=== PATIENT | male | born 1955 | race Caucasian/White ===

== ENCOUNTER 2023-02-19 17:19 | Emergency (ER) | payer OTHER, SELFPAY ==
[2023-02-19 17:23] VITALS: BP 119/66
--- NOTE | 2023-02-19 19:35 | ED.GENMED ---
History of Present Illness
General
Chief Complaint: Post Operative Problem(s)
Source: patient
Exam Limitations: none
Time Seen by Provider: 02/19/23 18:55
Nursing documentation reviewed up to this point in time: agreed with
Travel History
Have you had any contact with someone who has COVID-19?: No
Do you have any symptoms of coronavirus? Fever > 100 degrees, chills, cough, shortness of breath, sore throat, loss of taste or smell, muscle aches, or headache?: No
History of Present Illness
History of Present Illness:
Patient status post elective outpatient right inguinal hernia repair this morning, presents to ED secondary to sudden onset of swelling noted over the incision site next to his umbilicus. Procedure was performed 3 incision sites. Denies fever or
chills. Denies pain.
Past History
Past History
ED Past Medical History: None
ED Past Surgical History: Other (Hemorrhoidectomy)
Social History
Tobacco: Smoker
Personal:
Living: with family
Review of Systems
Review of Systems
Allergies reviewed?: Yes
All Other Systems: ROS reviewed and negative except as documented in HPI and ROS
Constitutional: Reports no symptoms
Musculoskeletal: Reports no symptoms
Skin: Reports other (swelling over incision site)
Neurological: Reports no symptoms
Phy Exam
Physical Exam
Physical Exam:
Physical Exam
General: no apparent distress, not acutely ill. afebrile
Head: nc/at. eomi
Neck: supple. no meningeal signs.
Abdomen: normal bowel sounds. not tender.
Neuro: alert and oriented. no focal neurological deficits
Skin: multiple incisional wound noted over umbilicus and suprapubic region with minimal surrounding ecchymosis and swelling.
Psychiatric: well kept. interactive and cooperative
Extremities: no edema. no calf tenderness.
Course
Vital Signs
Initial and Last Documented VS:
Initial Vital Signs
Temp Pulse Resp BP Pulse Ox
98.1 F 82 16 119/66 98
02/19/23 17:23 02/19/23 17:23 02/19/23 17:23 02/19/23 17:23 02/19/23 17:23
Last Documented Vital Signs
Temp Pulse Resp BP Pulse Ox
98.1 F 82 16 119/66 98
02/19/23 17:23 02/19/23 17:23 02/19/23 17:23 02/19/23 17:23 02/19/23 17:23
MDM/Problems Addressed
MDM/Problems Addressed:
Incision site picture viewed by oncall surgery, , who feels that presentation is likely small hematoma from incision. Advises gauze application with pressure dressing along with outpatient f/u. Pt and spouse agree with treatment plan.
*Critical Care Note
Total Time (30-74mins, 75-104mins- exclusive of procedures): Not Applicable
ED Attending Note
-
Portions of this chart may have been created with voice recognition software.� Occasional wrong word or��sound alike� substitutions may have occurred due to the inherent limitations of voice recognition software.
Discharge Plan
Departure
Patient Disposition: Home (Routine Discharge)
Date of Disposition: 02/19/23
Time of Disposition: 19:36
Patient with high blood pressure during this ER visit?: Yes
Condition: Good
Discharge Problem:
post op hematoma
Instructions: Hematoma
Prescriptions:
No Action
atorvastatin 40 mg Tablet
40 mg PO QPM
tamsulosin 0.4 mg Capsule
0.4 mg PO QPM
budesonide-formoterol [Symbicort] 80-4.5 mcg/actuation Hfa Aerosol Inhaler
1 inh INHALATION PRN PRN (Reason: SOB)
cholecalciferol (vitamin D3) [Vitamin D3] 50 mcg (2,000 unit) Capsule
50 mcg PO QPM
aspirin 81 mg Capsule
81 mg PO QPM
sertraline 150 mg Capsule
150 mg PO QPM
tramadol 50 mg tablet
50 mg PO Q6HPRN PRN (Reason: severe pain/breakthrough pain) Qty: 10 0RF
acetaminophen [Tylenol Extra Strength] 500 mg tablet
1,000 mg PO Q6HPRN PRN (Reason: mild pain) Qty: 1 0RF
ibuprofen 200 mg tablet
400 mg PO Q6HPRN PRN (Reason: moderate pain) Qty: 1 0RF
polyethylene glycol 3350 [Miralax] 17 gram/dose powder
4 g PO DAILY PRN (Reason: Constipation) Qty: 119 0RF
Rx Instructions:
start a laxative such as MIRALAX on day 2 after surgery if no bowel movement yet as long as no nausea/vomiting and passing gas
Referrals:
Juana Duncan MD [Family Provider] -
Nito Zaidi MD [Active] -
Activity Restrictions/Additional Instructions:
As discussed, please follow up with your surgeon with any further concerns.
Interventions
Interventions:
*Risk Screen - Suicide Last Done: 02/19/23 17:35
*General Assessment Last Done: 02/19/23 17:35
*Neglect/Abuse Screening Last Done: 02/19/23 17:35
ED- Fall Risk Assessment Last Done: 02/19/23 17:37
*ED COVID-19 Vaccine History Last Done: 02/19/23 17:23
*Nursing Disposition Last Done: 02/19/23 19:54
ED-Skin Assessment Last Done: 02/19/23 17:36
Discharge Date and Time
Discharge Date/Time: 02/19/23 19:55
== END 2023-02-19 19:55 | disposition home or self-care (01) ==
LOC: EMR 17:19
PROVIDERS: EMERGENCY PHYSICIAN Emergency Medicine; FAMILY PHYSICIAN Internal Medicine
DX: L76.32 Postprocedural hematoma of skin and subcutaneous tissue following other procedure (principal); Y83.8 Other surgical procedures as the cause of abnormal reaction of the patient, or of later complication, without mention of misadventure at the time of the procedure; R03.0 Elevated blood-pressure reading, without diagnosis of hypertension; F17.200 Nicotine dependence, unspecified, uncomplicated; Z79.82 Long term (current) use of aspirin
CPT/HCPCS: 99281

== ENCOUNTER → 2023-07-25 09:42 | Outpatient (REF) | payer OTHER, SELFPAY | LOC: HWRAD 09:42 | PROVIDERS: ATTENDING PHYSICIAN Internal Medicine | DX: F17.200 Nicotine dependence, unspecified, uncomplicated (principal); R63.4 Abnormal weight loss | CPT/HCPCS: 71046 ==

== ENCOUNTER → 2023-08-17 10:05 | Outpatient (REF) | payer OTHER, SELFPAY | LOC: HWRAD 10:05 | PROVIDERS: ATTENDING PHYSICIAN Internal Medicine | DX: F17.200 Nicotine dependence, unspecified, uncomplicated (principal); R63.4 Abnormal weight loss; R97.20 Elevated prostate specific antigen [PSA]; R10.9 Unspecified abdominal pain | CPT/HCPCS: 74177; Q9967 ==

== ENCOUNTER → 2024-02-27 07:47 | Outpatient (REF) | payer OTHER, SELFPAY | LOC: DHCBC/DCA 07:47 | PROVIDERS: ATTENDING PHYSICIAN Internal Medicine | DX: R06.02 Shortness of breath (principal); Z01.818 Encounter for other preprocedural examination | CPT/HCPCS: 78452; 93017; A9500; J2785 ==

== ENCOUNTER → 2024-03-10 15:57 | Outpatient (REF) | payer OTHER, SELFPAY | LOC: HWRAD 15:57 | PROVIDERS: ATTENDING PHYSICIAN Urology; FAMILY PHYSICIAN Internal Medicine | DX: Z01.811 Encounter for preprocedural respiratory examination (principal) | CPT/HCPCS: 71046 ==

== ENCOUNTER 2024-05-16 17:02 | Inpatient (IN) | payer OTHER, SELFPAY ==
[2024-05-16 09:51] VITALS: BP 152/73
[2024-05-16] MEDS: DUONEB 3 ML INH (10:02)
--- NOTE | 2024-05-16 10:24 | ED.GENMED ---
History of Present Illness
General
Chief Complaint: Breathing Problem
Source: patient and spouse
Exam Limitations: none
Time Seen by Provider: 05/16/24 10:17
Nursing documentation reviewed up to this point in time: agreed with
History of Present Illness
History of Present Illness:
69-year-old male past medical history of previous stroke COPD presenting to the emergency department today with concerns of worsening shortness of breath and wheezing over the past week. Has been using his home inhalers without movement. Denies
any chest pain does feel very short of breath does feel some lightheadedness. No fevers no recent illnesses.
Past History
Past History
ED Past Medical History: None
ED Past Surgical History: Other (Hemorrhoidectomy)
Social History
Tobacco: Smoker
Personal:
Living: with family
Review of Systems
Review of Systems
Allergies reviewed?: Yes
All Other Systems: ROS reviewed and negative except as documented in HPI and ROS
Phy Exam
Physical Exam
Physical Exam:
GENERAL: Alert , in no apparent distress
EYE: pupils equal and reactive
NECK: Supple, no significant adenopathy.
ENT: o/p clr, mmm.
CARDIAC: Regular rate and rhythm .
LUNGS: Diminished breath sounds diffuse inspiratory and expiratory wheezing
ABDOMEN: Soft, without focal tenderness, no r/g, no cvat
NEUROLOGICAL: Alert and oriented, no focal neuro deficits
SKIN: Warm and dry, skin intact.
MUSCULOSKELETAL: No edema, well perfused.
PSYCH: Normal and appropriate interaction.
Scores
Heart Failure Risk
Heart Failure Risk Score: Not Applicable
Sepsis
Sepsis Screening
Sepsis Assessment: Sepsis Ruled Out
Sepsis Screen
Sepsis Screen: Sepsis Ruled Out
Date: 05/16/24
Time: 16:37
Course
Orders/Labs/Results
Orders:
Orders
05/16/24 09:57
Ipratropium/Albuterol Sulfate [Duoneb] 3 ml INH R NOW ONE
05/16/24 10:23
Dexamethasone Sod Phosphate [Decadron] 10 mg IV NOW STA
Ipratropium/Albuterol Sulfate [Duoneb] 9 ml INH R NOW STA
CR Chest Portable - 1 View Urgent
Comment:
Reason For Exam: sob
Reason Study Needs to be Portable: Patient Unstable
05/16/24 10:24
Azithromycin [Zithromax] 500 mg PO NOW STA
05/16/24 10:40
Complete Blood Count/With Diff Urgent
Comprehensive Metabolic Panel Urgent
05/16/24 13:10
Albuterol Nebs [Ventolin Nebules] 2.5 mg INH R NOW STA
05/16/24 15:34
Albuterol Nebs [Ventolin Nebules] 2.5 mg INH R NOW STA
05/16/24 16:34
COVID-19 Antigen Routine
Source: Nasal Swab
Abnormal Lab Results
05/16/24
10:40
RBC 4.48 L 10^6/uL
(4.70-6.10)
RDW 15.3 H %
(11.5-14.5)
Absolute Lymphs (auto) 1.1 L 10^3/uL
(1.2-3.4)
Lymphocytes % 18.4 L %
(20.5-51.1)
Eosinophils % 12.2 H %
(0-6)
Carbon Dioxide 31 H mmol/L
(22-30)
Glucose 116 H mg/dl
(70-99)
Total Protein 6.1 L g/dl
(6.3-8.2)
05/16/24 10:40
05/16/24 10:40
Vital Signs
Initial and Last Documented VS:
Initial Vital Signs
Pulse Resp BP Pulse Ox
96 24 152/73 94
05/16/24 09:51 05/16/24 09:51 05/16/24 09:51 05/16/24 09:51
Last Documented Vital Signs
Pulse Resp BP Pulse Ox
97 22 152/73 96
05/16/24 16:15 05/16/24 16:15 05/16/24 09:51 05/16/24 16:15
MDM/Problems Addressed
MDM/Problems Addressed:
69-year-old male presenting to the emergency department today with concerns of diffuse inspiratory expiratory wheezing worsening through the week. Does have a history of COPD. Started on steroids and DuoNebs here. Patient reassessed still with
very significant wheezing appears very short of breath with even the slightest movement and any ambulation. Concerning his plan to admit for further treatment and monitoring.
*Critical Care Note
Total Time (30-74mins, 75-104mins- exclusive of procedures): Not Applicable
ED Attending Note
-
Portions of this chart may have been created with voice recognition software.� Occasional wrong word or��sound alike� substitutions may have occurred due to the inherent limitations of voice recognition software.
Discharge Plan
Departure
Patient Disposition: Admit
Date of Disposition: 05/16/24
Time of Disposition: 15:37
Admit to: Med/Surg
Admit to doctor: Izabella
Presentation/result/management discussed w/ accepting MD/DO: Hospitalist
Patient with high blood pressure during this ER visit?: No
Condition: Good
Covid-19: Not Applicable
Discharge Problem:
COPD exacerbation
Prescriptions:
No Action
atorvastatin 40 mg Tablet
40 mg PO QPM
tamsulosin 0.4 mg Capsule
0.4 mg PO QPM
cholecalciferol (vitamin D3) [Vitamin D3] 50 mcg (2,000 unit) Capsule
50 mcg PO QPM
aspirin 81 mg Capsule
81 mg PO QPM
acetaminophen [Tylenol Extra Strength] 500 mg tablet
1,000 mg PO Q6HPRN PRN (Reason: mild pain) Qty: 1 0RF
ibuprofen 200 mg tablet
400 mg PO Q6HPRN PRN (Reason: moderate pain) Qty: 1 0RF
sertraline 100 mg tablet
200 mg PO QPM
albuterol sulfate 90 mcg/actuation HFA aerosol inhaler
2 puff INHALATION Q6HPRN PRN (Reason: sob)
Trelegy Ellipta 100-62.5-25 mcg blister with device
1 inh INHALATION R DAILY
cetirizine 5 mg Tablet
5 mg PO DAILY
Referrals:
Juana Duncan MD [Family Provider] -
Interventions
Interventions:
*Risk Screen - Suicide Last Done: 05/16/24 10:43
*General Assessment Last Done: 05/16/24 10:43
*Neglect/Abuse Screening Last Done: 05/16/24 10:43
*ED- Fall Risk Assessment Last Done: 05/16/24 10:43
*ED COVID-19 Vaccine History Last Done: 05/16/24 10:43
ED- Cardiac Assessment Last Done: 05/16/24 10:43
ED- Pulmonary Assessment Last Done: 05/16/24 10:43
Discharge Date and Time
Print Language: OCCITAN
[2024-05-16] MEDS: DECADRON 10 MG IV (10:32)
[2024-05-16] MEDS: ZITHROMAX 500 MG PO (10:32)
[2024-05-16] MEDS: DUONEB 9 ML INH (10:32)
[2024-05-16 10:56] LABS: % Basophils 1.2 % (0-2); % Eosinophils 12.2 % (0-6); % Immature Granulocytes 0.3 % (0-0.5); % Lymphocytes 18.4 % (20.5-51.1); % Monocytes 5.9 % (1.7-9.3); Absolute Basophils 0.1 10^3/uL (0-0.2); Absolute Eosinophils 0.7 10^3/uL (0-0.7); Absolute Lymphocytes 1.1 10^3/uL (1.2-3.4); Absolute Monocytes 0.3 10^3/uL (0.1-0.6); Absolute Neutrophils 3.6 10^3/uL (1.4-6.5); Hematocrit 41.2 % (39.0-52.0); Hemoglobin 13.9 g/dL (13.0-18.0); Mean Corp Hgb Conc. 33.7 g/dL (33.0-37.0); Mean Platelet Volume 9.4 fL (7.4-10.4); Nucleated Red Blood Cells % 0 % (-); Platelet Count 156 10^3/uL (130-400); Red Blood Cell Count 4.48 10^6/uL (4.70-6.10); Red Cell Dist. Width 15.3 % (11.5-14.5); White Blood Cell Count 5.8 10^3/uL (4.8-10.8)
[2024-05-16 11:08] LABS: ALT (SGPT) 29 U/L (0-50); AST (SGOT) 23 U/L (17-59); Albumin 3.8 g/dl (3.5-5.0); Alkaline Phosphatase 101 U/L (38-126); Blood Urea Nitrogen 11 mg/dl (9-20); Calcium 9.2 mg/dl (8.4-10.2); Carbon Dioxide 31 mmol/L (22-30); Chloride 99 mmol/L (98-107); Glucose 116 mg/dl (70-99); Potassium 4.1 mmol/L (3.5-5.1); Sodium 135 mmol/L (135-145); Total Bilirubin 0.7 mg/dl (0.2-1.3); Total Protein 6.1 g/dl (6.3-8.2); eGFR > 60.00
--- NOTE | 2024-05-16 13:04 | EDRN ---
Pts ambulatory pulse ox 92% on room air after neb. Pt asking to be discharged. Provider at bedside to re-evaluate.
[2024-05-16] MEDS: VENTOLIN NEBULES 2.5 MG INH ×3 (13:13→21:33)
--- NOTE | 2024-05-16 16:45 | HPS.HSE ---
Family Physician
-
Family Physician: Juana Duncan
Chief Complaint
-
Shortness of breath
History of Present Illness
69-year-old male here complaining of progressive shortness of breath, dyspnea on exertion over the past week. Productive cough. Denies sick contacts.
Actively smokes. Not on home oxygen.
Denies fevers, chills, chest pain.
Medical History
Past Medical History
Past Medical History: Reports Other
Additional Past Medical History:
COPD
Prostate cancer
Stroke -embolectomy
Hyperlipidemia
BPH
Depression
Past Surgical History: Reports Other
Additional Past Surgical History:
Hemorrhoidectomy
Inguinal hernia repair
Prostatectomy
Cerebral embolectomy
Social History
Tobacco: Smoker
Alcohol: Occasional
Drug: None
Personal:
Living: With Family
Employment: Not Employed
Family History
Family History: Not pertinent
Allergies / Home Medications
Allergies reflects when Allergies were last updated in [employer].
Home Medications with original date entered in [employer]
Allergy/Medication List:
Allergies
Allergy/AdvReac Type Severity Reaction Status Date / Time
No Known Allergies Allergy Verified 05/16/24 09:54
Home Medications
aspirin 81 mg capsule 81 mg PO QPM 02/15/23
atorvastatin 40 mg tablet 40 mg PO QPM 02/15/23
cholecalciferol (vitamin D3) 50 mcg (2,000 unit) capsule (Vitamin D3) 50 mcg PO QPM 02/15/23
tamsulosin 0.4 mg capsule 0.4 mg PO QPM 02/15/23
acetaminophen 500 mg tablet (Tylenol Extra Strength) 1,000 mg (2 x 500 mg) PO Q6HPRN PRN mild pain #1 tab 02/19/23
ibuprofen 200 mg tablet 400 mg (2 x 200 mg) PO Q6HPRN PRN moderate pain #1 tab 02/19/23
albuterol sulfate 90 mcg/actuation aerosol inhaler 2 puff inhalation Q6HPRN PRN sob 05/16/24
cetirizine 5 mg tablet 5 mg PO DAILY Allergies 05/16/24
fluticasone fur. 100 mcg-umeclid 62.5 mcg-vilant 25 mcg inhalat.powder (Trelegy Ellipta) 1 inh inhalation R DAILY 05/16/24
sertraline 100 mg tablet 200 mg PO QPM 05/16/24
Review of Systems
-
History Source: Patient and Family
A 12 point ROS was completed and negative except as noted: Yes
Physical Exam
Vital Signs
Vital Signs
Pulse Resp BP Pulse Ox
97 22 152/73 96
05/16/24 16:15 05/16/24 16:15 05/16/24 09:51 05/16/24 16:15
Physical Exam
General: No Apparent Distress, Comfortable and Cachectic
HEENT: NormoCephalic, Anicteric and Moist mucous membranes
Respiratory: Wheezes
Cardiac: S1/S2 and Regular Rhythm
GI: Soft, Non Tender and Non Distended
Genito-urinary: Deferred by me
Musculoskeletal: No Clubbing, No Cyanosis and No Edema
Skin: Warm and Dry
Neuro: AO x 3
Hematologic/Lymphatic: No Lymphadenopathy
Psych: Calm
Laboratory Results
-
05/16/24 10:40
05/16/24 10:40
Laboratory Results
Total Bilirubin 0.7 mg/dl (0.2-1.3) 05/16/24 10:40
AST 23 U/L (17-59) 05/16/24 10:40
ALT 29 U/L (0-50) 05/16/24 10:40
Alkaline Phosphatase 101 U/L (38-126) 05/16/24 10:40
Impression/Plan
-
Acute hypoxic respiratory insufficiency - due to acute COPD exacerbation. Oxygenation improved on 2 L nasal cannula. Chest x-ray shows hyperinflation without infiltrates. Check COVID antigen.
Admit to MedSurg.
Acute COPD exacerbation -steroids, nebs, oxygen. Azithromycin, Acapella, incentive spirometer, Mucinex.
Assess need for home oxygen prior to discharge.
Recommend follow-up with pulmonary after discharge. Currently does not have a disability coordinator.
Tobacco dependence -cessation advised. Nicotine patch ordered. Smokes 1 pack/day. Started at the age of 26.
History of stroke -2014. Required embolectomy. Continue aspirin, atorvastatin.
History of prostate cancer -underwent prostatectomy March 2024.
Depression -on sertraline.
Full code
updated at the bedside.
[2024-05-16 17:12] LABS: COVID-19 Antigen Negative (Negative)
[2024-05-16 18:19] VITALS: BP 112/67
[2024-05-16 19:00] VITALS: BP 106/70
[2024-05-16 19:47] VITALS: BMI 18.8
[2024-05-16 20:00] VITALS: BP 96/56
[2024-05-16 21:00] VITALS: BP 112/72
[2024-05-16] MEDS: ADVAIR HFA 230/21 MCG INHALER 2 PUFF INH (21:32)
[2024-05-16 22:00] VITALS: BP 131/77; BMI 20.1
[2024-05-16] MEDS: ZOLOFT 200 MG PO (22:35)
[2024-05-16] MEDS: LOVENOX 40 MG SC (22:35)
[2024-05-16] MEDS: ASPIR LOW (ENTERIC COATED) 81 MG PO (22:35)
[2024-05-16] MEDS: FLOMAX 0.4 MG PO (22:36)
[2024-05-16] MEDS: LIPITOR 40 MG PO (22:36)
[2024-05-16] MEDS: MUCINEX 600 MG PO (22:36)
[2024-05-16] MEDS: VITAMIN D3 (cholecalciferol) 50 MCG PO (22:36)
[2024-05-16] MEDS: NICODERM TRANSDERMAL 21 MG TRANSDERM (23:19)
[2024-05-17] MEDS: DECADRON 4 MG IV ×3 (05:56→21:55)
[2024-05-17 07:16] VITALS: BP 110/70
[2024-05-17] MEDS: SPIRIVA RESPIMAT 2.5 MCG 2 PUFF INH (07:22)
[2024-05-17] MEDS: ADVAIR HFA 230/21 MCG INHALER 2 PUFF INH ×2 (07:22→19:16)
[2024-05-17] MEDS: VENTOLIN NEBULES 2.5 MG INH ×4 (07:22→19:16)
[2024-05-17] MEDS: ZITHROMAX 500 MG PO (08:47)
[2024-05-17] MEDS: MUCINEX 600 MG PO ×2 (08:47→20:21)
[2024-05-17] MEDS: NICODERM TRANSDERMAL 21 MG TRANSDERM (08:47)
--- NOTE | 2024-05-17 10:07 | W.PN.HOSP.TC ---
Today's Communication/Plan
-
Continue current care
Assessment / Plan
Assessment / Plan
Gen-AAOx3, NAD
HEENT-NC, AT, anicteric, clear oral mm
Neck-supple
CV-reg, no M, +S1/S2
Lungs-diminished breath sounds without wheezing
Abd-soft, NT, ND
Ext-no edema
Musculoskeletal-no cyanosis, clubbing
Skin-warm and dry
Neuro-grossly non-focal
Psych-calm, cooperative
Acute hypoxic respiratory insufficiency - due to acute COPD exacerbation. Oxygenation improved on 2 L nasal cannula. Chest x-ray shows hyperinflation without infiltrates. COVID-negative.
Acute COPD exacerbation -steroids, nebs, oxygen. Azithromycin, Acapella, incentive spirometer, Mucinex.
Assess need for home oxygen prior to discharge.
Recommend follow-up with pulmonary after discharge. 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
Tobacco dependence -cessation advised. Nicotine patch ordered. Smokes 1 pack/day. Started at the age of 26.
History of stroke -2014. Required embolectomy. Continue aspirin, atorvastatin.
History of prostate cancer -underwent prostatectomy March 2024.
Depression -on sertraline.
Full code
Dispo -likely discharge if he remains stable. Updated family.
Anticipated Discharge: Within 24 hours
Subjective/Interval History
-
Date of Service: May 17, 2024
Patient seen and examined. No complaints. Feeling better.
Objective Data
-
Vital Signs:
Vital Signs
Temp Pulse Resp BP Pulse Ox
98.2 F 88 18 110/70 95
05/17/24 07:16 05/17/24 07:27 05/17/24 07:27 05/17/24 07:16 05/17/24 07:27
Review of Systems
-
History Source: Patient
All other systems: Reviewed and negative
[2024-05-17 15:11] VITALS: BP 123/60
[2024-05-17] MEDS: FLOMAX 0.4 MG PO (17:02)
[2024-05-17] MEDS: LIPITOR 40 MG PO (17:02)
[2024-05-17] MEDS: ASPIR LOW (ENTERIC COATED) 81 MG PO (17:02)
[2024-05-17] MEDS: LOVENOX 40 MG SC (17:03)
[2024-05-17] MEDS: ZOLOFT 200 MG PO (17:03)
[2024-05-17] MEDS: VITAMIN D3 (cholecalciferol) 50 MCG PO (17:03)
[2024-05-17 23:00] VITALS: BP 106/67
[2024-05-18] MEDS: DECADRON 4 MG IV (05:45)
[2024-05-18 07:30] VITALS: BP 135/74
[2024-05-18] MEDS: ZITHROMAX 500 MG PO (07:47)
[2024-05-18] MEDS: MUCINEX 600 MG PO (07:48)
[2024-05-18] MEDS: NICODERM TRANSDERMAL 21 MG TRANSDERM (07:49)
[2024-05-18] MEDS: SPIRIVA RESPIMAT 2.5 MCG 2 PUFF INH (08:16)
[2024-05-18] MEDS: VENTOLIN NEBULES 2.5 MG INH (08:16)
[2024-05-18] MEDS: ADVAIR HFA 230/21 MCG INHALER 2 PUFF INH (08:16)
--- NOTE | 2024-05-18 09:07 | W.PN.HOSP.TC ---
Today's Communication/Plan
-
Discharge
Assessment / Plan
Assessment / Plan
Gen-AAOx3, NAD
HEENT-NC, AT, anicteric, clear oral mm
Neck-supple
CV-reg, no M, +S1/S2
Lungs- clear bilaterally
Abd-soft, NT, ND
Ext-no edema
Musculoskeletal-no cyanosis, clubbing
Skin-warm and dry
Neuro-grossly non-focal
Psych-calm, cooperative
Acute hypoxic respiratory insufficiency - due to acute COPD exacerbation. Oxygenation improved, now on room air. Chest x-ray shows hyperinflation without infiltrates. COVID-negative.
Does not need home oxygen on discharge.
Acute COPD exacerbation -steroids, nebs, oxygen. Azithromycin, Acapella, incentive spirometer, Mucinex. COPD much improved, wheezing resolved.
Assess need for home oxygen prior to discharge.
Recommend follow-up with pulmonary after discharge. 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
Tobacco dependence -cessation advised. Nicotine patch ordered. Smokes 1 pack/day. Started at the age of 26.
History of stroke -2014. Required embolectomy. Continue aspirin, atorvastatin.
History of prostate cancer -underwent prostatectomy March 2024.
Depression -on sertraline.
Full code
Dispo -medically stable for discharge home today. Follow-up with PCP and pulmonary.
32 minutes spent in discharge process.
Anticipated Discharge: Today
Subjective/Interval History
-
Date of Service: May 18, 2024
Patient seen and examined. Feeling fine, no complaints.
Objective Data
-
Vital Signs:
Vital Signs
Temp Pulse Resp BP Pulse Ox
98.0 F 89 20 135/74 95
05/18/24 07:30 05/18/24 08:17 05/18/24 08:17 05/18/24 07:30 05/18/24 08:17
I&O
05/17/24 05/18/24 05/19/24
06:59 06:59 06:59
Intake Total 1440 / 1440
Balance 1440 / 1440
Review of Systems
-
History Source: Patient
All other systems: Reviewed and negative
--- NOTE | 2024-05-18 09:14 | W.DS.TRANS ---
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
-
Discharge Instructions:
Discharge Diagnosis/Procedures COPD exacerbation
Diet Low Fat,Low Cholesterol
Activity As tolerated
Driving Restrictions As prior to admission
Bathing Restrictions None
Instructions:
Stand-Alone Forms:
Changes to Home Medications: No
Discharge Medications:
DC Medications w/original date entered in [employer]
aspirin 81 mg capsule 81 mg PO QPM Blood Clot Prevention/Tx 02/15/23
atorvastatin 40 mg tablet 40 mg PO QPM High Cholesterol 02/15/23
cholecalciferol (vitamin D3) 50 mcg (2,000 unit) capsule (Vitamin D3) 50 mcg PO QPM Supplement 02/15/23
tamsulosin 0.4 mg capsule 0.4 mg PO QPM 02/15/23
acetaminophen 500 mg tablet (Tylenol Extra Strength) 1,000 mg (2 x 500 mg) PO Q6HPRN PRN mild pain #1 tab 02/19/23
ibuprofen 200 mg tablet 400 mg (2 x 200 mg) PO Q6HPRN PRN moderate pain #1 tab 02/19/23
albuterol sulfate 90 mcg/actuation aerosol inhaler 2 puff inhalation Q6HPRN PRN sob 05/16/24
cetirizine 5 mg tablet 5 mg PO DAILY Allergies 05/16/24
fluticasone fur. 100 mcg-umeclid 62.5 mcg-vilant 25 mcg inhalat.powder (Trelegy Ellipta) 1 inh inhalation R DAILY Lung/Breathing Issues 05/16/24
sertraline 100 mg tablet 200 mg PO QPM 05/16/24
albuterol sulfate 2.5 mg/3 mL (0.083 %) solution for nebulization 2.5 mg (3 mL) inhalation R Q4HPRN PRN wheezing, SOB #90 mL 05/18/24
fluticasone propionate 50 mcg/actuation nasal spray,suspension (24 Hour Allergy Relief) 2 spray intranasal DAILY #16 grams 05/18/24
guaifenesin 600 mg tablet, extended release 12 hr 600 mg PO Q12 #0 tabs 05/18/24
nicotine 21 mg/24 hr daily transdermal patch 21 mg transdermal DAILY #0 ea 05/18/24
prednisone 10 mg tablet 10 mg PO DIRECTED #20 tabs 05/18/24
Home Medication Changes
Pending Results: No
--- NOTE | 2024-05-18 09:54 | CM ---
CM reviewed chart, patient seen bedside, initial assessment completed. Patient resides with in a multiple story home, 1.5 steps to enter. Patient is independent with ADLS/IADLs, denies VN or SNF history. Patient does not require home O2 upon
discharge. Patient PCP Juana Duncan, [facility]. Patient denies needs upon discharge. IMM reviewed, signed, placed in chart. Patient for discharge today, confirms will provide transportation home. CM will continue to follow
for all discharge planning needs.
Plan; home no needs.
[2024-05-18 11:30] VITALS: BP 108/55
== END 2024-05-18 11:40 | disposition home or self-care (01) | DRG 192 ==
LOC: 4 WEST ACU 17:02
PROVIDERS: Physician Assistant; ADMITTING PHYSICIAN Hospitalist; EMERGENCY PHYSICIAN Emergency Medicine; FAMILY PHYSICIAN Internal Medicine
DX: J44.1 Chronic obstructive pulmonary disease with (acute) exacerbation (principal); R09.02 Hypoxemia; F17.210 Nicotine dependence, cigarettes, uncomplicated; F32.A Depression, unspecified; E78.5 Hyperlipidemia, unspecified; Z86.73 Personal history of transient ischemic attack (TIA), and cerebral infarction without residual deficits; Z85.46 Personal history of malignant neoplasm of prostate
CPT/HCPCS: 71045; 80053; 85025; 87811; 94640; 96374; 99285; 99406

== ENCOUNTER → 2024-07-08 11:06 | Outpatient (REF) | payer OTHER, SELFPAY | LOC: HWRAD 11:06 | PROVIDERS: ATTENDING PHYSICIAN Internal Medicine Critical Care Medicine; FAMILY PHYSICIAN Internal Medicine | DX: F17.210 Nicotine dependence, cigarettes, uncomplicated (principal) | CPT/HCPCS: 71271 ==

== ENCOUNTER → 2024-07-08 13:44 | Outpatient (REF) | payer OTHER, SELFPAY | LOC: DHSLP 13:44 | PROVIDERS: ATTENDING PHYSICIAN Internal Medicine Critical Care Medicine | DX: G47.33 Obstructive sleep apnea (adult) (pediatric) (principal) | CPT/HCPCS: 95800 ==

== ENCOUNTER 2024-08-21 09:08 | Inpatient (IN) | payer OTHER, SELFPAY ==
[2024-08-21] VITALS (7 sets, daily range): BP systolic 104–137; BP diastolic 60–91; BMI 21.1; BMI 20.1
--- NOTE | 2024-08-21 06:04 | ED.GENMED ---
History of Present Illness
General
Chief Complaint: Breathing Problem
Source: patient
Exam Limitations: none
Time Seen by Provider: 08/21/24 05:58
History of Present Illness
History of Present Illness:
69yoM with a history of COPD, tobacco use (1.5ppd), prior CVA, and prostate cancer s/p prostatectomy presenting via EMS for evaluation of shortness of breath. Patient reports waking up from sleep this morning with shortness of breath, wheezing, and
cough. Symptoms feel similar to his COPD flares. It feels like he cannot get a deep enough breath. He denies any shortness of breath yesterday. He received a DuoNeb prehospital and is feeling slightly improved. He denies any fevers, chills,
chest pain. Of note, patient was just diagnosed with SAM and is scheduled to receive his CPAP next week. Patient was hospitalized in May 2024 for a COPD exacerbation.
Past History
Past History
ED Past Medical History: None
ED Past Surgical History: Other (Hemorrhoidectomy)
Social History
Tobacco: Smoker
Personal:
Living: with family
Phy Exam
General Physical Exam
General Presentation: mild distress
General Skin: warm and dry
General Habitus: normal
General Mental: alert
ENT Exam
ENT Exam: normocephalic
Cardiovascular Exam
Cardiovascular Exam: regular rate/rhythm
Pulmonary Exam
Pulmonary Exam: generalized wheezing
Respiratory Effort: tachypnea
Neurological Exam
Neurological Exam: alert
Crow Coma Scale
Eye Opening: Spontaneous
Verbal Response: Oriented
Motor Response: Obeys Commands
GCS Total Score: 15
Skin Exam
Skin Exam: normal color and warm/dry
Psychiatric Exam
Psychiatric Exam: normal mood/affect
Scores
Heart Failure Risk
Heart Failure Risk Score: Not Applicable
Course
Orders/Labs/Results
Orders:
Orders
08/21/24 06:02
EKG [Electrocardiogram (*1)] Urgent
Reason for Study: Shortness of Breath
08/21/24 06:03
Cardiac Monitoring- Treatment ONCE
EKG- Treatment ONCE
Albuterol Sulfate [Ventolin Nebules] 10 mg INH R NOW STA
Ipratropium Nebs [Atrovent Nebules] 1 mg INH R NOW STA
08/21/24 06:05
Dexamethasone Sod Phosphate [Decadron] 10 mg IV NOW STA
08/21/24 06:11
COVID-19 Antigen Urgent
Source: Nasal Swab
Complete Blood Count/With Diff Urgent
Comprehensive Metabolic Panel Urgent
Troponin I Urgent
Influenza A+B Rapid Molecular Urgent
KAMALA Source: Nasal Swab
Specimen Description:
08/21/24 06:58
Albuterol Sulfate [Ventolin Nebules] 10 mg INH R NOW STA
Ipratropium Nebs [Atrovent Nebules] 1 mg INH R NOW STA
CR Chest - 2 Views Urgent
Comment:
Reason For Exam: SOB
08/21/24 07:13
Azithromycin 500 mg/250 ml [Zithromax Infusion] 500 mg in 250 ml IV NOW
Abnormal Lab Results
08/21/24
06:11
RBC 4.51 L 10^6/uL
(4.70-6.10)
RDW 14.7 H %
(11.5-14.5)
Absolute Eos (auto) 0.9 H 10^3/uL
(0-0.7)
Eosinophils % 12.1 H %
(0-6)
Sodium 134 L mmol/L
(135-145)
Glucose 138 H mg/dl
(70-99)
Alkaline Phosphatase 148 H U/L
(38-126)
Total Protein 6.1 L g/dl
(6.3-8.2)
08/21/24 06:11
08/21/24 06:11
Vital Signs
Initial and Last Documented VS:
Initial Vital Signs
Temp Pulse Resp BP Pulse Ox
97.6 F 98 24 137/91 95
08/21/24 05:56 08/21/24 05:56 08/21/24 05:56 08/21/24 05:56 08/21/24 05:56
Last Documented Vital Signs
Temp Pulse Resp BP Pulse Ox
97.6 F 90 26 120/85 94
08/21/24 05:56 08/21/24 06:15 08/21/24 06:15 08/21/24 06:00 08/21/24 06:21
MDM/Problems Addressed
Differential Diagnosis Includes:
69yoM here with cough, SOB, wheezing that began this morning. Hx of COPD and heavy tobacco use. He is tachypneic on arrival. Oxygen saturation in the low 90s on initial exam. Diffuse wheezing noted on lung exam. Differential diagnosis includes but
is not limited to: COPD exacerbation, viral illness, bronchitis, pneumonia, less likely ACS
Initial ED plan: Check cardiac labs, EKG, COVID/flu swab, and CXR. Hour long neb and IV Decadron.
*Pulse Oximetry
SaO2: 95
Oxygen Mode of Delivery: Room air
Patient hypoxic: no (95%)
*EKG
Interpreted by ED Provider?: Yes
EKG Intrepretation Date: 08/21/24
Heart Rate: 92
Rate: normal
Rhythm: sinus
Merrick: left axis deviation
Interval: normal interval
Ischemia: no ischemia
*Critical Care Note
Total Time (30-74mins, 75-104mins- exclusive of procedures): Not Applicable
Update Note
Update Note:
Labs overall unremarkable. No ischemic changes on EKG and troponin normal. Viral testing negative. No infiltrate seen on chest x-ray per my interpretation. Patient with persistent wheezing and increased work of breathing after neb treatment.
Second hour-long neb ordered and patient admitted for further management.
ED Attending Note
-
Portions of this chart may have been created with voice recognition software.� Occasional wrong word or��sound alike� substitutions may have occurred due to the inherent limitations of voice recognition software.
Discharge Plan
Departure
Patient Disposition: Admit
Date of Disposition: 08/21/24
Time of Disposition: 07:17
Presentation/result/management discussed w/ accepting MD/DO: Hospitalist
Discharge Problem:
COPD with acute exacerbation
Prescriptions:
No Action
atorvastatin 40 mg Tablet
40 mg PO QPM
tamsulosin 0.4 mg Capsule
0.4 mg PO QPM
cholecalciferol (vitamin D3) [Vitamin D3] 50 mcg (2,000 unit) Capsule
50 mcg PO QPM
aspirin 81 mg Capsule
81 mg PO QPM
acetaminophen [Tylenol Extra Strength] 500 mg tablet
1,000 mg PO Q6HPRN PRN (Reason: mild pain) Qty: 1 0RF
ibuprofen 200 mg tablet
400 mg PO Q6HPRN PRN (Reason: moderate pain) Qty: 1 0RF
sertraline 100 mg tablet
200 mg PO QPM
albuterol sulfate 90 mcg/actuation HFA aerosol inhaler
2 puff INHALATION Q6HPRN PRN (Reason: sob)
Trelegy Ellipta 100-62.5-25 mcg blister with device
1 inh INHALATION R DAILY
cetirizine 5 mg Tablet
5 mg PO DAILY
guaifenesin 600 mg Tablet Extended Release 12hr
600 mg PO Q12 Qty: 0 0RF
nicotine 21 mg/24 hr Patch 24 Hour
21 mg transdermal DAILY Qty: 0 0RF
albuterol sulfate 2.5 mg /3 mL (0.083 %) Solution For Nebulization
2.5 mg inhalation R Q4HPRN PRN (Reason: wheezing, SOB) Qty: 90 0RF
prednisone 10 mg tablet
10 mg PO DIRECTED Qty: 20 0RF
Rx Instructions:
4 tabs daily x2 days, 3 tabs daily x2 days, 2 tabs daily x2 days, 1 tab daily x2 days.
fluticasone propionate [24 Hour Allergy Relief] 50 mcg/actuation spray,suspension
2 spray intranasal DAILY Qty: 16 0RF
Rx Instructions:
2 sprays each nostril once daily.
Referrals:
RYAN MOSELEY [Other]
Interventions
Interventions:
*Risk Screen - Suicide Last Done: 08/21/24 05:56
*General Assessment Last Done: 08/21/24 05:56
*Neglect/Abuse Screening Last Done: 08/21/24 05:56
*ED- Fall Risk Assessment Last Done: 08/21/24 05:56
*ED COVID-19 Vaccine History Last Done: 08/21/24 05:56
ED- Cardiac Assessment Last Done: 08/21/24 06:21
ED- Pulmonary Assessment Last Done: 08/21/24 06:21
Discharge Date and Time
Print Language: SPANISH
[2024-08-21] MEDS: ATROVENT NEBULES 1 MG INH ×2 (06:14→07:29)
[2024-08-21] MEDS: VENTOLIN NEBULES 10 MG INH ×2 (06:14→07:29)
[2024-08-21] MEDS: DECADRON 10 MG IV (06:15)
[2024-08-21 06:24] LABS: Hematocrit 40.4 % (39.0-52.0); Hemoglobin 13.5 g/dL (13.0-18.0); Mean Corp Hgb Conc. 33.4 g/dL (33.0-37.0); Mean Corpuscular Volume 89.6 fL (80.0-94.0); Nucleated Red Blood Cells % 0 % (-); Platelet Count 174 10^3/uL (130-400); Red Cell Dist. Width 14.7 % (11.5-14.5)
[2024-08-21 06:43] LABS: COVID-19 Antigen Negative (Negative)
[2024-08-21 06:48] LABS: Troponin I < 0.012 ng/ml
[2024-08-21 06:52] LABS: ALT (SGPT) 19 U/L (0-50); AST (SGOT) 21 U/L (17-59); Albumin 3.8 g/dl (3.5-5.0); Alkaline Phosphatase 148 U/L (38-126); Blood Urea Nitrogen 10 mg/dl (9-20); Calcium 9.0 mg/dl (8.4-10.2); Carbon Dioxide 27 mmol/L (22-30); Chloride 99 mmol/L (98-107); Estimated Creatinine Clearance 90 ml/min; Glucose 138 mg/dl (70-99); Potassium 4.0 mmol/L (3.5-5.1); Sodium 134 mmol/L (135-145); Total Protein 6.1 g/dl (6.3-8.2); eGFR > 60.00
[2024-08-21] MEDS: ZITHROMAX INFUSION 250 IV (07:28)
--- NOTE | 2024-08-21 08:17 | HPS.HSE ---
Family Physician
-
Family Physician: RYAN MOSELEY
Chief Complaint
-
shortness of breath
History of Present Illness
Patient is a 69-year-old male with past medical history of COPD, sleep apnea, tobacco use, history of prostate cancer status post prostatectomy, depression, history of CVA came to ER with new onset of shortness of breath overnight. Patient was in
usual state of health over the last few days besides some exertional dyspnea developing. In the night patient started having significant shortness of breath and felt like having a COPD flareup. Some dry cough no reported fever. No sick contact.
Patient was discharged from hospital in June 06 after treatment of COPD flareup and has seen pulmonology in office. Patient had had a sleep study and undergoing process of mask fitting for CPAP. Patient is planned to have PFT later in the month.
Denies any associated chest pain/dizziness/abdominal pain/nausea/vomiting/dysuria
Medical History
Past Medical History
Past Medical History: Reports Other
Additional Past Medical History:
COPD, sleep apnea, tobacco use, history of prostate cancer status post prostatectomy, depression, history of CVA
Past Surgical History: Reports Other
Social History
Tobacco: Smoker (Stopped 4 days back)
Alcohol: Occasional
Drug: None
Personal:
Living: With Family
Family History
Family History: Not pertinent
Allergies / Home Medications
Allergies reflects when Allergies were last updated in [facility] [employer].
Home Medications with original date entered in [facility] [facility]
Allergy/Medication List:
Allergies
Allergy/AdvReac Type Severity Reaction Status Date / Time
No Known Allergies Allergy Verified 05/16/24 09:54
Home Medications
atorvastatin 40 mg tablet 40 mg PO QPM High Cholesterol 02/15/23
cholecalciferol (vitamin D3) 50 mcg (2,000 unit) capsule (Vitamin D3) 50 mcg PO QPM Supplement 02/15/23
acetaminophen 500 mg tablet (Tylenol Extra Strength) 1,000 mg (2 x 500 mg) PO Q6HPRN PRN mild pain #1 tab 02/19/23
albuterol sulfate 90 mcg/actuation aerosol inhaler 2 puff inhalation R Q6HPRN PRN sob 05/16/24
cetirizine 5 mg tablet 5 mg PO DAILY Allergies 05/16/24
fluticasone fur. 100 mcg-umeclid 62.5 mcg-vilant 25 mcg inhalat.powder (Trelegy Ellipta) 1 inh inhalation R DAILY Lung/Breathing Issues 05/16/24
sertraline 100 mg tablet 200 mg PO QPM 05/16/24
albuterol sulfate 2.5 mg/3 mL (0.083 %) solution for nebulization 2.5 mg (3 mL) inhalation R Q4HPRN PRN wheezing, SOB #90 mL 05/18/24
fluticasone propionate 50 mcg/actuation nasal spray,suspension (24 Hour Allergy Relief) 2 spray intranasal DAILY #16 grams 05/18/24
aspirin 81 mg tablet,delayed release 81 mg PO DAILY 08/21/24
guaifenesin 600 mg tablet, extended release 12 hr 600 mg PO BID 08/21/24
Review of Systems
-
A 12 point ROS was completed and negative except as noted: Yes
Physical Exam
Vital Signs
Vital Signs
Temp Pulse Resp BP Pulse Ox
97.6 F 90 26 120/85 94
08/21/24 05:56 08/21/24 06:15 08/21/24 06:15 08/21/24 06:00 08/21/24 06:21
Physical Exam
HEENT: No Oxygen
Respiratory: Wheezes and Decreased Breath Sounds
Cardiac: S1/S2, Regular Rhythm and Tachycardia; No Murmur or Rub
GI: Soft, Non Tender, Non Distended and Normal Bowel Sounds; No Organomegaly
Rectal: Deferred by Provider
Musculoskeletal: No Clubbing, No Cyanosis and No Edema
Skin: No Rash
Neuro: Awake, Alert, Oriented and Nonfocal/grossly intact
Laboratory Results
-
08/21/24 06:11
08/21/24 06:11
Laboratory Results
Total Bilirubin 0.7 mg/dl (0.2-1.3) 08/21/24 06:11
AST 21 U/L (17-59) 08/21/24 06:11
ALT 19 U/L (0-50) 08/21/24 06:11
Alkaline Phosphatase 148 U/L (38-126) H 08/21/24 06:11
Troponin I < 0.012 ng/ml 08/21/24 06:11
Impression/Plan
-
1. COPD flareup
Acute hypoxic respiratory insufficiency
-New onset of shortness of breath/dry cough within 24-hour
-Chest x-ray official read pending, images reviewed and no clear overt pneumonia
-Patient got IV Decadron 10 mg in ER, start 4 mg every 8 hours from evening
-Nebulizer therapy prescribed
-Azithromycin as part of COPD flareup treatment
2. Tobacco use
-Patient stopped smoking 4 days back
-Nicorette gum as needed ordered for craving
-Patient prescribed Wellbutrin
3. history of prostate cancer status post prostatectomy
- no urological complains
4. depression
- maintain on sertraline
history of CVA
HLD
DVT PPX - Lovenox
Full code
Total time spent : 79 mins
I personally saw and examined the patient.
I have reviewed all diagnostic interpretations and treatment plans as written.
Time includes patient management by me, time spent at the patients bedside, time to review lab and imaging results, discussing patient care, documentation in the medical record, and time spent with the family or caregiver and discussing care plan
with RN/Consultants.
--- NOTE | 2024-08-21 10:24 | PTCARENOTE ---
Received pt from ED into room 406-2. Pt able to ambulate but has dyspnea on exertion. Pt lungs very coarse with expiratory wheezes throughout. Pox 93% RA, placed on 2L for comfort d/t SOB. HR tachy and pt reports anxiety, PRN medication see APR.
at bedside assisted with answering admission questions. Educated pt on medications, oxygen, and activity restrictions. Oriented to room, call velázquez within reach.
[2024-08-21] MEDS: VENTOLIN NEBULES 2.5 MG INH ×3 (11:30→19:13)
[2024-08-21] MEDS: ALPRAZOLAM ODT 0.25 MG PO (14:07)
[2024-08-21] MEDS: LOVENOX 40 MG SC (17:17)
[2024-08-21] MEDS: LIPITOR 40 MG PO (17:17)
[2024-08-21] MEDS: ZOLOFT 200 MG PO (17:17)
[2024-08-21] MEDS: SYMBICORT 80/4.5 MCG INHALER 2 PUFF INH (19:13)
[2024-08-21] MEDS: DECADRON 4 MG IV (19:56)
[2024-08-22] MEDS: ALPRAZOLAM ODT 0.25 MG PO (00:06)
[2024-08-22] MEDS: DECADRON 4 MG IV ×3 (04:19→20:23)
[2024-08-22 07:00] VITALS: BP 119/78
[2024-08-22] MEDS: SYMBICORT 80/4.5 MCG INHALER 2 PUFF INH ×2 (07:15→19:14)
[2024-08-22] MEDS: SPIRIVA RESPIMAT 2.5 MCG 2 PUFF INH (07:15)
[2024-08-22] MEDS: VENTOLIN NEBULES 2.5 MG INH ×4 (07:15→19:14)
[2024-08-22 08:07] LABS: Hematocrit 37.4 % (39.0-52.0); Hemoglobin 12.5 g/dL (13.0-18.0); Mean Corp Hgb Conc. 33.4 g/dL (33.0-37.0); Mean Corpuscular Volume 89.0 fL (80.0-94.0); Platelet Count 166 10^3/uL (130-400); Red Cell Dist. Width 15.1 % (11.5-14.5)
[2024-08-22 08:21] LABS: Blood Urea Nitrogen 12 mg/dl (9-20); Calcium 8.3 mg/dl (8.4-10.2); Carbon Dioxide 26 mmol/L (22-30); Chloride 100 mmol/L (98-107); Estimated Creatinine Clearance 100 ml/min; Glucose 109 mg/dl (70-99); Potassium 4.7 mmol/L (3.5-5.1); Sodium 130 mmol/L (135-145); eGFR > 60.00
[2024-08-22] MEDS: ZITHROMAX 250 MG PO (08:36)
[2024-08-22] MEDS: ZYRTEC 5 MG PO (08:36)
[2024-08-22] MEDS: ASPIR LOW (ENTERIC COATED) 81 MG PO (08:36)
[2024-08-22] MEDS: NICORETTE 2 MG PO (12:55)
--- NOTE | 2024-08-22 13:32 | W.PN.HOSP.TC ---
Today's Communication/Plan
-
wean off o2 as possible
ST eval as some coughing on swallowing
maintain on steroids/neb thearpy
Assessment / Plan
Assessment / Plan
1. COPD flare-up
Acute hypoxic respiratory insufficiency
-New onset of shortness of breath/dry cough within 24-hour
-Chest x-ray official read pending, images reviewed and no clear overt pneumonia
-Patient got IV Decadron 10 mg in ER, maintained on Dexa 4 mg every 8 hours
-Nebulizer therapy prescribed
-Azithromycin as part of COPD flareup treatment
2. Tobacco use
-Patient stopped smoking 4 days back
-Nicorette gum as needed ordered for craving
-Patient prescribed Wellbutrin
3. history of prostate cancer status post prostatectomy
- no urological complains
4. depression
- maintain on sertraline
history of CVA
HLD
DVT PPX - Lovenox
Full code
Anticipated Discharge: 24 - 48 hours
Subjective/Interval History
-
Date of Service: August 22, 2024
no new issues overnight
o2 requirement is stable
Objective Data
-
Labs:
Laboratory Results
08/22/24
06:37
WBC 6.9
Hgb 12.5 L
Hct 37.4 L
Plt Count 166
Sodium 130 L
Potassium 4.7
Chloride 100
Carbon Dioxide 26
BUN 12
Creatinine 0.6 L
Glucose 109 H
Calcium 8.3 L
Vital Signs:
Vital Signs
Temp Pulse Resp BP Pulse Ox
97.6 F 79 18 119/78 97
08/22/24 07:00 08/22/24 11:05 08/22/24 11:05 08/22/24 07:00 08/22/24 11:05
I&O
08/21/24 08/22/24 08/23/24
06:59 06:59 06:59
Intake Total 720 / 720
Balance 720 / 720
Review of Systems
-
Respiratory: Reports No Symptoms
Cardiac: Reports No Symptoms
Abdomen/GI: Reports No Symptoms
Physical Exam
-
General: No Apparent Distress and Comfortable
HEENT: Oxygen (3L NC)
Respiratory: Wheezes
Cardiac: Regular Rhythm and S1/S2; Negative Murmur or Rub
Musculoskeletal: No Edema
Neuro: Awake, Alert, Oriented, No Motor Deficits and Nonfocal/Grossly Intact
Psych: Calm
--- NOTE | 2024-08-22 15:18 | PN.CDI ---
CDI
- -
CDI:
Physician Documentation Request
Admit Date: 08/21/24 09:08
Dear Doctor Santana,
Clinical Indicators:
Patient admitted with COPD exacerbation.
Sodium trend:
08/21/24 08/22/24
: 06:37
Sodium 134 L 130 L
Based on the above, could you clarify in the progress notes, the appropriate diagnosis, if significant, that supports the above abnormalities and additional evaluation, monitoring and/or treatment rendered:
Hyponatremia
Abnormal lab value, clinically insignificant
Other, please specify
Use of terms such as suspected, likely, concern for, or probable (associated with a specific diagnosis that is being evaluated, monitored, or treated as if it exists) are acceptable and can be coded in the inpatient setting, when documented at the
time of discharge.
Thank you,
KATRINA Titus RN
CDI Specialist
available via tiger text
Please use your independent medical judgment in providing your response.
[2024-08-22 15:30] VITALS: BP 116/58
--- NOTE | 2024-08-22 16:15 | CM ---
Met with patent to obtain information for assessment. Patient's was at bedside. Patient stated that he lives with her in a split level home with six steps to enter. He described himself as independent with all of his ADLs, personal care,
dressing and bathing. 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 Patient has a CPAP but denied any other DME. He has not been to a SNF.
Patient has a prescription plan and uses, [facility] in [place] for all of his medications.
His PCP is, Juana Duncan.
Plan: Case management will continue to follow and assist with discharge planning. Patient stated that he feels he will be able to return home when cleared.
--- NOTE | 2024-08-22 16:24 | PTOTSP ---
Dysphagia Evaluation
Patient is reporting signs concerning for esophageal dysphagia (i.e., sensation of stasis with meats and large pills, pointed to base of neck, relieved with liquid washes and/or gagging). No signs concerning for oral/pharyngeal dysphagia observed
during this clinical bedside swallowing evaluation. Patient edentulous and with chronic dysphagia risk factors including history of COPD, CVA. No prior PNAs noted.
Recommend:
1. IDDSI 7 Regular, Thin
2. Medications crushed and mixed in puree if medically cleared to do so
3. Strategies: upright to 90 degrees, cut foods into small bite sized pieces, moisten foods well with sauces/gravies, alternate sips/bites, remain upright for 30 minutes after PO intake
4. Consider outpatient gastroenterology consult
[2024-08-22] MEDS: ZOLOFT 200 MG PO (17:32)
[2024-08-22] MEDS: LIPITOR 40 MG PO (17:32)
[2024-08-22] MEDS: LOVENOX 40 MG SC (17:32)
[2024-08-22] MEDS: MELATONIN 5 MG PO (21:21)
[2024-08-22 23:32] VITALS: BP 123/75
[2024-08-23] MEDS: DECADRON 4 MG IV ×2 (04:17→11:38)
[2024-08-23] MEDS: SYMBICORT 80/4.5 MCG INHALER 2 PUFF INH (07:28)
[2024-08-23] MEDS: VENTOLIN NEBULES 2.5 MG INH ×2 (07:28→11:22)
[2024-08-23] MEDS: SPIRIVA RESPIMAT 2.5 MCG 2 PUFF INH (07:28)
[2024-08-23 07:40] LABS: Hematocrit 36.7 % (39.0-52.0); Hemoglobin 12.5 g/dL (13.0-18.0); Mean Corp Hgb Conc. 34.1 g/dL (33.0-37.0); Mean Corpuscular Volume 88.2 fL (80.0-94.0); Platelet Count 170 10^3/uL (130-400); Red Cell Dist. Width 14.7 % (11.5-14.5)
[2024-08-23] MEDS: ZITHROMAX 250 MG PO (07:41)
[2024-08-23] MEDS: ASPIR LOW (ENTERIC COATED) 81 MG PO (07:41)
[2024-08-23] MEDS: ZYRTEC 5 MG PO (07:41)
[2024-08-23 08:07] LABS: Blood Urea Nitrogen 16 mg/dl (9-20); Calcium 8.8 mg/dl (8.4-10.2); Carbon Dioxide 28 mmol/L (22-30); Chloride 98 mmol/L (98-107); Estimated Creatinine Clearance 86 ml/min; Glucose 111 mg/dl (70-99); Potassium 4.6 mmol/L (3.5-5.1); Sodium 130 mmol/L (135-145); eGFR > 60.00
[2024-08-23 08:17] VITALS: BP 114/67
[2024-08-23 11:39] VITALS: BP 114/63
[2024-08-23] MEDS: NICORETTE 2 MG PO (11:50)
--- NOTE | 2024-08-23 13:54 | W.PN.HOSP.TC ---
Addendum entered and electronically signed by Arsen Dillon MD 08/24/24 13:19:
Add to dx list
Hyponatremia
Original Note:
Today's Communication/Plan
-
d/c home
Assessment / Plan
Assessment / Plan
1. COPD flare-up
Acute hypoxic respiratory insufficiency
-New onset of shortness of breath/dry cough within 24-hour
-Chest x-ray official read pending, images reviewed and no clear overt pneumonia
-Patient got IV Decadron 10 mg in ER, maintained on Dexa 4 mg every 8 hours
-Nebulizer therapy prescribed
-Azithromycin as part of COPD flareup treatment
2. Tobacco use
-Patient stopped smoking 4 days back
-Nicorette gum as needed ordered for craving
-Patient prescribed Wellbutrin
3. history of prostate cancer status post prostatectomy
- no urological complains
4. depression
- maintain on sertraline
5. Dysphagia
- Per speech therapy patient possibly may have some regurgitation/esophageal phase dysphagia
- Esophagogram ordered although unable to be done over the weekend, patient okay with outpatient study. Prescription provided
- Speech therapy cleared for regular solids/thin liquid for now
history of CVA
HLD
DVT PPX - Lovenox
Full code
More than 30 minutes spent in discharge including
Final examination of the patient
Summarizing hospital stay
Instructions for continuing care to all relevant caregivers
Preparation of discharge records, prescriptions, and referral forms
Total time spent (in minutes): 38 misn
Anticipated Discharge: Today
Subjective/Interval History
-
Date of Service: August 23, 2024
Denies of having any issues overnight
Off of oxygen
No dyspnea/cough
Objective Data
-
Labs:
Laboratory Results
08/23/24
06:52
WBC 6.3
Hgb 12.5 L
Hct 36.7 L
Plt Count 170
Sodium 130 L
Potassium 4.6
Chloride 98
Carbon Dioxide 28
BUN 16
Creatinine 0.7
Glucose 111 H
Calcium 8.8
Vital Signs:
Vital Signs
Temp Pulse Resp BP Pulse Ox
98 F 67 18 114/63 100
08/23/24 11:39 08/23/24 11:39 08/23/24 11:39 08/23/24 11:39 08/23/24 11:39
I&O
08/22/24 08/23/24 08/24/24
06:59 06:59 06:59
Intake Total 720 / 720 0 / 0
Balance 720 / 720 0 / 0
Review of Systems
-
Respiratory: Denies Cough or Trouble Breathing
Cardiac: Reports No Symptoms
Abdomen/GI: Reports No Symptoms
Physical Exam
-
General: No Apparent Distress and Comfortable
HEENT: Negative Oxygen
Respiratory: Clear to Auscultation
Cardiac: Regular Rhythm and S1/S2; Negative Murmur or Rub
Musculoskeletal: No Edema
Neuro: Awake, Alert, Oriented, No Motor Deficits and Nonfocal/Grossly Intact
Psych: Calm
--- NOTE | 2024-08-23 14:06 | W.DCSUMMARY ---
Discharge Summary
Discharge Data
Date of Admission: 08/21/24
Date of Discharge: 08/23/24
-
Pending Results: No
Hospital Course
Discharging Physician : Dr Arsen Dillon
Disposition : To home
Primary care physician : Dr Juana Duncan
Principal Discharge diagnosis :
Chronic obstructive pulmonary disease flare up
Acute hypoxic respite insufficiency
Tobacco use
Dysphagia
Chronic Discharge diagnosis :
History of prostate cancer post prostatectomy
Depression
History of stroke
Hyperlipidemia
Hospital Course :
Patient is a 69-year-old male with no mentioned past medical history came to ER with new onset of shortness of breath and dry cough. Patient has history of COPD and have ongoing tobacco use with patient stated of tobacco cessation for 4 to 5 days
before ER visit. In ER chest x-ray ruled out any pneumonia. On exam patient was having significant wheezing and was hypoxic. Patient was started on treatment for COPD flareup. With IV steroids/nebulizer therapy patient improvement in symptoms in
48 hours and patient was able to be weaned off of oxygen. At this point patient is being discharged home with tapering course of steroid and short course of azithromycin as part of COPD flareup treatment regimen. Patient have already appointment
to follow-up with commodity broker in office by end of the month for PFT and CPAP mask fitting.
Patient was also having some issues with swallowing and speech therapy evaluated patient. Patient was felt to having some dysphagia and esophageal phase and was cleared to be maintained on regular diet for now. An inpatient esophagogram was not
possible due to weekend/radiology department restrictions, patient was okay with having the study done on outpatient basis for which prescription was provided.
Important imaging findings :
None
Procedure findings :
None
Discharge Plan
-
Patient Disposition: Home (Routine Discharge)
Discharge Diagnosis/Procedures: COPD flare up, Hypoxic resp insufficiency
Condition: Fair
Diet: Regular
Activity: As tolerated
Driving Restrictions: As prior to admission
Bathing Restrictions: OK to Shower
Referrals:
Juana Ducnan MD [Family Provider, Internal Medicine] - in one week
Boaz Crane MD [Active, Pulmonary Medicine]
Prescriptions:
New
prednisone 10 mg Tablet
See Rx Instructions .ROUTE .COMPLEX Qty: 30 0RF
Rx Instructions:
Take By Mouth:
40 mg daily x3 days, 30 mg daily x3 days,
20 mg daily x3 days, 10 mg daily x3 days.
azithromycin 250 mg tablet
250 mg PO DAILY 3 Days Qty: 3 0RF
Continued
atorvastatin 40 mg Tablet
40 mg PO QPM
cholecalciferol (vitamin D3) [Vitamin D3] 50 mcg (2,000 unit) Capsule
50 mcg PO QPM
acetaminophen [Tylenol Extra Strength] 500 mg tablet
1,000 mg PO Q6HPRN PRN (Reason: mild pain) Qty: 1 0RF
sertraline 100 mg tablet
200 mg PO QPM
albuterol sulfate 90 mcg/actuation HFA aerosol inhaler
2 puff INHALATION R Q6HPRN PRN (Reason: sob)
Trelegy Ellipta 100-62.5-25 mcg blister with device
1 inh INHALATION R DAILY
cetirizine 5 mg Tablet
5 mg PO DAILY
albuterol sulfate 2.5 mg /3 mL (0.083 %) Solution For Nebulization
2.5 mg inhalation R Q4HPRN PRN (Reason: wheezing, SOB) Qty: 90 0RF
aspirin 81 mg Tablet,Delayed Release (Dr/Ec)
81 mg PO DAILY
guaifenesin 600 mg tablet extended release 12hr
600 mg PO BID
fluticasone propionate [24 Hour Allergy Relief] 50 mcg/actuation spray,suspension
2 spray intranasal DAILY
Discharge Orders:
Discharge Patient (As Directed); Ordered 08/23/24
Ordered By: Arsen Dillon
Discharge Date and Time
Discharge Date/Time: 08/23/24 12:03
Print Language: WOLOF
--- NOTE | 2024-08-23 16:57 | CM ---
Patient with Dx COPD flare. Room air. Per nurse; ambulatory in halls.
Met with patient who was preparing for discharge.
The patient says he feels ready for discharge home today. IMM completed.
His will provide a ride home.
No CM d/c needs identified.
Plan home today.
== END 2024-08-23 12:03 | disposition home or self-care (01) | DRG 191 ==
LOC: 4 EAST ACU 09:08
PROVIDERS: Physician Assistant; ADMITTING PHYSICIAN Hospitalist; EMERGENCY PHYSICIAN Student in an Organized Health Care Education/Training Program; FAMILY PHYSICIAN Internal Medicine
DX: J44.1 Chronic obstructive pulmonary disease with (acute) exacerbation (principal); E87.1 Hypo-osmolality and hyponatremia; R09.02 Hypoxemia; R13.10 Dysphagia, unspecified; F32.A Depression, unspecified; E78.5 Hyperlipidemia, unspecified; G47.33 Obstructive sleep apnea (adult) (pediatric); F17.200 Nicotine dependence, unspecified, uncomplicated; Z79.82 Long term (current) use of aspirin; Z11.52 Encounter for screening for COVID-19; Z85.46 Personal history of malignant neoplasm of prostate; Z86.73 Personal history of transient ischemic attack (TIA), and cerebral infarction without residual deficits
CPT/HCPCS: 71046; 80048; 80053; 84484; 85025; 85027; 87502; 87811; 92610; 93005; 94640; 96365; 96375; 99285

== ENCOUNTER → 2024-09-02 10:35 | Outpatient (REF) | payer OTHER, SELFPAY | LOC: RAD 10:35 | PROVIDERS: ATTENDING PHYSICIAN Hospitalist; FAMILY PHYSICIAN Internal Medicine | DX: R13.10 Dysphagia, unspecified (principal) | CPT/HCPCS: 74221 ==